=== PATIENT | male | born 1975 | race Hispanic/Latino ===

== ENCOUNTER 2017-02-19 09:44 | Day surgery (SDC) | payer OTHER ==
[~2017-02-19 09:44] MED LIST: ANCEF/STERILE WATER 2 GM/20 ML IV NR
[2017-02-19] MEDS ORDERED: NACL BACTERIOSTATIC INFILTRATI ONE (10:13)
--- NOTE | 2017-02-19 10:29 | Anesthesia Consultation ---
Anesthesia Consult and Med Hx Date of service: 02/19/17 - Airway Anesthetic Teeth Evaluation: Good, Chipped (broken/missing front tooth) ROM Head & Neck: Adequate Mental/Hyoid Distance: Adequate Mallampati Class: Class I Intubation Access Assessment: Probably Good - Pulmonary Exam CTA: Yes - Cardiac Exam Cardiac Exam: RRR - Pre-Operative Health Status ASA Pre-Surgery Classification: ASA1 Proposed Anesthetic Plan: MAC - Pulmonary Hx Smoking: No Hx Sleep Apnea: No (JESUS PRE SCREEN LOW RISK) - Cardiovascular System Hx Hypertension: No - Other Systems Hx Cancer: No
--- NOTE | 2017-02-19 10:29 | Anesthesia Day of Surgery ---
Anesthesia Day of Surgery - Day of Surgery Patient Examined: Yes Patient H&P Reviewed: Yes Patient is NPO: Yes
[2017-02-19] MEDS ORDERED: DILAUDID ONE (10:52)
[2017-02-19] MEDS ORDERED: DIPRIVAN 10 MG/ML IV ONE ×3 (10:52→13:05)
[2017-02-19] MEDS ORDERED: XYLOCAINE MPF 2% ONE (10:54)
[2017-02-19] MEDS ORDERED: VERSED IV NR (11:00)
[2017-02-19] MEDS ORDERED: NACL 0.9% 1000 ML 1,000 ML IV SCH (11:00)
[2017-02-19] MEDS ORDERED: PEPCID IV NR (11:00)
[2017-02-19] MEDS ORDERED: MARCAINE 0.25% INFILTRATI ONE ×2 (11:48→12:45)
[2017-02-19] MEDS ORDERED: XYLOCAINE 1% 20 mL ONE (11:53)
[2017-02-19] MEDS ORDERED: NACL 0.9% IR ONE (12:45)
[2017-02-19] MEDS ORDERED: XYLOCAINE 1% 20 mL INFILTRATI ONE (12:45)
[2017-02-19] MEDS ORDERED: ZOFRAN ONE (13:06)
[2017-02-19] MEDS ORDERED: NACL 0.9% 1000 ML 1,000 ML ONE (13:38)
--- NOTE | 2017-02-19 13:48 | Operative Report ---
Operative Report Operative Report: Date of procedure: 02/19/2017 Pre-operative diagnosis: Left upper back Soft tissue mass Post-operative diagnosis: Same Procedure name(s): Excision of left upper back soft tissue mass Surgeon: Nani Vilchis MD Sales Account Manager: None Anesthesia: Mac, 0.25% Marcaine, 1% lidocaine EBL: Minimal Complications: None Instrument Count: Accurate Indications: This is a 41-year-old male with a history of a left upper back soft tissue mass that has increasingly gotten larger. He was offered the above- named procedures a possible treatment modality. The risks and benefits were discussed until all questions were answered. He was subsequently brought to the OR. Findings: 7-8 cm left upper back soft tissue mass Procedure: We reviewed the informed consent. The patient was then placed supine upon the table. After adequate anesthesia was reached, the patient was prepped and draped in the usual sterile fashion. We infiltrated local anesthetic in a field block manner. We then made an elliptical incision through the skin using a 15 blade. Dissection was carried down to the soft tissue mass and was dissected free from surrounding fascial attachments. The findings were consistent with what was noted above. We the mass and handed off the table to be sent to pathology for further evaluation. We then ensured hemostasis. Approximated the subcutaneous tissues using a 3-0 Vicryl. A piece of Surgicel was placed at the base of the wound. We used 4-0 Monocryl to close the skin. The wound was bandaged sterilely. The patient tolerated procedure well, was awakened and transferred to recovery room in no apparent distress.
--- NOTE | 2017-02-19 13:51 | Short Stay Summary ---
Short Stay Documentation Date of service: 02/19/17 - Allergies and Medications Current Medications: Allergies cat dander Allergy (Verified 02/18/17 17:26) Swelling Home Medications Medication Instructions Recorded Confirmed Last Taken Type Sulfamethoxazole/Trimethoprim 1 each PO BID 02/13/17 02/19/17 02/18/17 History [Bactrim DS TAB] Active Medications Cefazolin Sodium (Ancef/Sterile Water 2 Gm/20 Ml) 2 gm IV PREOP NR Stop: 02/19/17 23:00 Famotidine (Pepcid) 20 mg IV PREOP NR Stop: 02/19/17 23:00 Last Admin: 02/19/17 10:46 Dose: 20 mg Sodium Chloride (Nacl 0.9% 1000 Ml) 1,000 mls @ 100 mls/hr IV DIRECT RUSSELL Last Admin: 02/19/17 10:45 Dose: 100 mls/hr Midazolam HCl (Versed) 2 mg IV PREOP NR Stop: 02/19/17 23:59 Last Admin: 02/19/17 10:49 Dose: 2 mg - Brief post op/procedure progress note Date of procedure: 02/19/17 Pre-op diagnosis: upper back soft tissue mass Post-op diagnosis: same Procedure: Excision of left upper back soft tissue mass Anesthesia: MAC Findings: 7 to 8 cm soft tissue mass Surgeon: DILCIA DAVIS Estimated blood loss: minimal Pathology: list (soft tissue mass) Specimen disposition: to lab Condition: stable - Disposition Condition at discharge: Stable Disposition: DC-01 TO HOME OR SELFCARE Short Stay Discharge Plan Activity: no restrictions Diet: regular Wound: remove dressing (in 2 days) Follow up with: MYRNA GOMEZ NP [Primary Care Provider] - 7 Days DILCIA DAVIS MD [Staff Physician] - 7 Days Prescriptions: Sulfamethoxazole/Trimethoprim [Bactrim DS TAB] 1 each PO BID #14 tablet traMADol [Ultram 50 MG tab] 50 mg PO Q6HR PRN #10 tablet PRN Reason: Pain
[2017-02-19] MEDS ORDERED: NEO SYNEPHRINE/NS Syringe(OR USE) IV ONE (15:00)
[2017-02-19 16:26] VITALS: BP 90/55
--- NOTE | 2017-02-19 17:49 | Post Anesthesia Evaluation ---
- Post Anesthesia Evaluation Patient Participated: Yes Airway Patent: Yes Stable Respiratory Function: Yes Nausea/Vomiting: No Temp > 96.8F: Yes Pain Manageable: Yes Adequeate Hydration: Yes Anesthesia Complications: No Block Receding Appropriately: Not Applicable Patient on Ventilator: No
== END 2017-02-19 16:26 | disposition home or self-care (01) ==
LOC: OR 09:44
PROVIDERS: ATTEND Surgery
DX: L72.0 Epidermal cyst (principal); Z91.09 Other allergy status, other than to drugs and biological substances; Z98.890 Other specified postprocedural states; Z80.51 Family history of malignant neoplasm of kidney
CPT/HCPCS: 21933; 88304; J0690; J1170; J2250; J2370; J2405; J2704; J7030; 88307

== ENCOUNTER 2017-05-29 10:10 | Day surgery (SDC) | payer OTHER ==
--- NOTE | 2017-05-29 11:27 | Anesthesia Consultation ---
Anesthesia Consult and Med Hx Date of service: 05/29/17 - Airway Anesthetic Teeth Evaluation: Poor (missing #8) ROM Head & Neck: Adequate Mental/Hyoid Distance: Adequate Mallampati Class: Class II Intubation Access Assessment: Probably Good - Pulmonary Exam CTA: Yes - Cardiac Exam Cardiac Exam: RRR - Pre-Operative Health Status ASA Pre-Surgery Classification: ASA1 Proposed Anesthetic Plan: General - Pulmonary Hx Smoking: Yes (only light smoking for a year '-94') Hx Sleep Apnea: No (JESUS PRE SCREEN LOW RISK) - Cardiovascular System Hx Hypertension: No - Central Nervous System Hx Psychiatric Problems: No - Other Systems Hx Alcohol Use: No Hx Substance Use: No Hx Cancer: No - Additional Comments Anesthesia Medical History Comments: NAC
--- NOTE | 2017-05-29 11:27 | Anesthesia Day of Surgery ---
Anesthesia Day of Surgery - Day of Surgery Patient Examined: Yes Patient H&P Reviewed: Yes Patient is NPO: Yes
[2017-05-29] MEDS ORDERED: PEPCID PO NR (11:30)
[2017-05-29] MEDS ORDERED: PERCOCET 5/325 PO PRN ×2 (11:57→14:34)
[2017-05-29] MEDS ORDERED: ZOFRAN IV PRN (11:57)
[2017-05-29] MEDS ORDERED: DILAUDID IV PRN (11:57)
[2017-05-29] MEDS ORDERED: VERSED IV NR (12:00)
[2017-05-29] MEDS ORDERED: LACTATED RINGERS 1,000 ML IV SCH (12:00)
[2017-05-29] MEDS ORDERED: DIPRIVAN 10 MG/ML IV ONE (12:09)
[2017-05-29] MEDS ORDERED: ZEMURON IV ONE (12:10)
[2017-05-29] MEDS ORDERED: XYLOCAINE MPF 2% ONE (12:10)
[2017-05-29] MEDS ORDERED: MARCAINE 0.25% INFILTRATI ONE ×2 (12:11→13:08)
[2017-05-29] MEDS ORDERED: DECADRON ONE (12:48)
[2017-05-29] MEDS ORDERED: ZOFRAN ONE (12:48)
[2017-05-29] MEDS ORDERED: ROBINUL ONE (12:49)
[2017-05-29] MEDS ORDERED: NEOSTIGMINE ONE (12:49)
[2017-05-29] MEDS ORDERED: NACL 0.9% IR ONE (13:08)
[2017-05-29] MEDS ORDERED: LACTATED RINGERS 1,000 ML ONE (13:14)
[2017-05-29] MEDS ORDERED: TORADOL ONE (13:30)
--- NOTE | 2017-05-29 13:37 | Operative Report ---
Operative Report Operative Report: Date of procedure: 05/29/2017 Pre-operative diagnosis: Right inguinal hernia Post-operative diagnosis: Same Procedure name(s): Laparoscopic preperitoneal right inguinal hernia repair with mesh Surgeon: Nani Vilchis MD Trust Administrator: None Anesthesia: General, 0.25% Marcaine EBL: Minimal Complications: None Instrument Count: Correct Indications: This is a 41-year-old male with a history of a right groin bulge. Clinical examination was consistent with a right inguinal hernia. He was off of the above-named procedure as a possible treatment modality. The risks and benefits discussed until all questions were answered. He was subsequently brought to the OR. Findings: As above Procedure: The patient was placed supine upon the table after adequate anesthesia was reached. We reviewed the informed consent. The patient was then prepped and draped in the usual sterile fashion. We infiltrated local anesthetic at the level of the umbilicus. A 1 cm incision was made. Dissection was carried down to the anterior layer of the rectus sheath. This was incised using a 15 blade. The rectus muscles identify retract and laterally. We then inserted a Covidian oval balloon dissector into the pre- peritoneal space. This was inflated. We were clearly able to see the pubic arch as well as the epigastric vessels without difficulty. The balloon was then deflated and substituted for a 10 mm balloon tipped trocar. The preperitoneal space was insufflated a 10 mm mercury. We placed 2 5mm ports both in the midline after infiltration of local anesthetic. This was performed under direct vision. We began our dissection on the right and dissected free the hernia sac from the cord structures. Both the gonadal vessels and the vas deferens were identified and preserved. We then inserted a medium Bard 3-D Max right sided mesh into the preperitoneal space. This was secured medially to Peng's ligament using a Protack device and superiorly and laterally to the anterior abdominal wall. We had good coverage of all hernia spaces. We then evacuated the insufflation. We removed all ports, and close all port sites using a 4-0 Monocryl in a subcuticular fashion. The patient tolerated procedure well. Was awakened, extubated, and transferred to PACU in no apparent distress.
--- NOTE | 2017-05-29 13:38 | Short Stay Summary ---
Short Stay Documentation Date of service: 05/29/17 - History H&P: dictated - Allergies and Medications Current Medications: Allergies cat dander Allergy (Verified 05/28/17 10:43) Swelling Home Medications Medication Instructions Recorded Confirmed Last Taken Type No Known Home Medications [No 05/29/17 05/29/17 Unknown History Reported Home Medications] Active Medications Cefazolin Sodium (Ancef/Sterile Water 2 Gm/20 Ml) 2 gm IV PREOP NR Stop: 05/29/17 23:59 Famotidine (Pepcid) 20 mg PO PREOP NR Stop: 05/29/17 15:00 Last Admin: 05/29/17 11:40 Dose: 20 mg Hydromorphone HCl (Dilaudid) 0.5 mg IV Q10MIN PRN PRN Reason: Pain , Severe (7-10) Stop: 05/29/17 15:00 Lactated Ringer's (Lactated Ringers) 1,000 mls @ 100 mls/hr IV DIRECT RUSSELL Last Admin: 05/29/17 11:41 Dose: 100 mls/hr Midazolam HCl (Versed) 2 mg IV PREOP NR Stop: 05/29/17 23:59 Last Admin: 05/29/17 11:46 Dose: 2 mg - Brief post op/procedure progress note Date of procedure: 05/29/17 Pre-op diagnosis: right inguinal hernia Post-op diagnosis: same Procedure: Laparoscopic right inguinal hernia repair with mesh Anesthesia: RHIANNON Surgeon: DILCIA DAVIS Estimated blood loss: minimal Pathology: none Condition: stable - Disposition Condition at discharge: Stable Disposition: DC-01 TO HOME OR SELFCARE Short Stay Discharge Plan Activity: no restrictions Follow up with: MYRNA GOMEZ NP [Primary Care Provider] - 7 Days DILCIA DAVIS MD [Staff Physician] - 7 Days Prescriptions: oxyCODONE /ACETAMINOPHEN [Percocet 5/325] 1 tab PO Q6HR PRN #30 tablet PRN Reason: Pain
--- NOTE | 2017-05-29 14:00 | Post Anesthesia Evaluation ---
- Post Anesthesia Evaluation Patient Participated: Yes Airway Patent: Yes Stable Respiratory Function: Yes Temp > 96.8F: Yes Pain Manageable: Yes Adequeate Hydration: Yes Anesthesia Complications: No
[2017-05-29 16:40] VITALS: BP 106/66
== END 2017-05-29 16:11 | disposition home or self-care (01) ==
LOC: OR 10:10
PROVIDERS: ATTEND Surgery
DX: K40.90 Unilateral inguinal hernia, without obstruction or gangrene, not specified as recurrent (principal); F17.200 Nicotine dependence, unspecified, uncomplicated; Z91.048 Other nonmedicinal substance allergy status; Z79.899 Other long term (current) drug therapy; Z80.51 Family history of malignant neoplasm of kidney
CPT/HCPCS: 49650; C1726; C1781; J0690; J1100; J1170; J1885; J2250; J2405; J2704; J2710; J7120